=== PATIENT | male | born 1950 | race Caucasian/White ===

== ENCOUNTER 2018-01-20 12:58 | Emergency (ER) | payer MEDICARE ==
[~2018-01-20] VITALS: Ht 177.8 cm; Wt 65.9 kg
[2018-01-20 13:08] VITALS: Ht 177.8 cm; Wt 65.9 kg
[2018-01-20 13:30] LABS: BASOPHILS 0.1 % (0-2); EOSINOPHILS 0.4 % (0-7); HEMATOCRIT 41.4 % (42.0-54.0); HEMOGLOBIN 14.2 g/dL (13.5-17.5); IMMATURE GRANULOCYTES 0.1 % (0-5); LYMPHOCYTES 28.9 % (15-50); MCHC 34.3 g/dL (31.0-37.0); MCV 84.7 fL (80.0-100.0); MEAN PLATELET VOLUME 8.9 fL (7.4-10.4); MONOCYTES 4.1 % (2-11); NEUTROPHILS 66.4 % (40-80); PLATELET COUNT 248 10x3/uL (130-400); RBC 4.89 10x6/uL (4.20-6.10); RDW 13.1 % (11.5-14.5); WBC 8.9 10x3/uL (4.8-10.8)
[2018-01-20 13:31] LABS: APPEARANCE HAZY (CLEAR); COLOR DK YELLOW (YELLOW); GLUCOSE NEGATIVE (NEGATIVE); KETONE NEGATIVE (NEGATIVE); NITRITE NEGATIVE (NEGATIVE); PROTEIN NEGATIVE (NEGATIVE); UROBILINOGEN NORMAL (NORMAL)
[2018-01-20 13:32] LABS: BACTERIA FEW /hpf (NONE SEEN); BILIRUBIN 2+ (NEGATIVE); EPITHELIAL CELLS 0-5 /hpf (0-5); MUCUS <1+ /lpf (NONE SEEN); RED CELLS - URINE 0-5 /hpf (0-5); WHITE CELLS - URINE 0-5 /hpf (0-5)
[2018-01-20 13:43] LABS: ALKALINE PHOSPHATASE 157 U/L (46-116); ALT (SGPT) 209 U/L (10-68); AMYLASE - SERUM 54 U/L (25-115); BILIRUBIN - TOTAL 1.39 mg/dL (0.2-1.3); CALC OSMOLALITY 274 mosm/kg (275-300); CALCIUM 8.3 mg/dL (8.5-10.1); CARBON DIOXIDE 28.4 mmol/L (21.0-32.0); CHLORIDE - SERUM 100 mmol/L (98-107); CREATININE - SERUM 0.9 mg/dL (0.6-1.3); GLUCOSE 141 mg/dL (74-106); LIPASE 396 U/L (73-393); POTASSIUM - SERUM 3.4 mmol/L (3.5-5.1); PROTEIN - SERUM 7.7 g/dL (6.4-8.2); SODIUM 136 mmol/L (136-145); UREA NITROGEN 14 mg/dL (7-18); eGFR NON AFRICAN AMERICAN 90 mL/min (90-120)
[2018-01-20 17:27] VITALS: BP 149/91
[2018-02-02 11:39] VITALS: Ht 177.8 cm; Wt 65.9 kg
== END 2018-01-20 17:28 | disposition home or self-care (01) ==
LOC: D.ER 12:58
PROVIDERS: Family Medicine
DX: R10.9 Unspecified abdominal pain (principal); F17.200 Nicotine dependence, unspecified, uncomplicated

== ENCOUNTER 2018-02-02 10:07 | Day surgery (SDC) | payer MEDICARE ==
[~2018-02-02] VITALS: Ht 177.8 cm; Wt 65.8 kg
--- NOTE | ~2018-02-02 | OP ---
PATIENT NAME: MARY ANN GALAVIZ MEDICAL RECORD: [id number] :54 LOCATION:D.OPS ADMISSION DATE: SURGEON: MAINOR SOLIZ MD DATE OF OPERATION: 02/02/2018 PREOPERATIVE DIAGNOSES: 1. Acute cholecystitis. 2. Abnormal elevated LFTs. 3. Recent pancreatitis. 4. Right inguinal hernia. 5. Tobacco dependence syndrome. 6. Arthritis. POSTOPERATIVE DIAGNOSES: 1. Acute cholecystitis. 2. Abnormal elevated LFTs. 3. Recent pancreatitis. 4. Right inguinal hernia. 5. Tobacco dependence syndrome. 6. Arthritis. PROCEDURES: 1. Laparoscopic cholecystectomy. 2. Intraoperative cholangiogram. 3. Fluoroscopic interpretation. 4. Austin-Cut liver biopsy. SURGEON: Mainor Soliz MD REPORT OF PROCEDURE: The patient's abdomen was prepped and draped in sterile fashion. A cutdown was made on the superior aspect of the umbilicus. The 0 Vicryls were placed in the fascia bilaterally and the fascia was incised with a 15-blade. I then bluntly entered the peritoneal cavity and placed a 12-mm Candace port. Under direct visualization, a 5-mm trocar was placed in the epigastrium and 2 more 5-mm trocars were placed in the right subcostal region. The gallbladder was grasped and elevated. The gallbladder was noted to be chronically inflamed with maybe some mild acute inflammation. The roldan of the gallbladder were thick and there were stones that were palpable. The cystic artery and cystic duct were dissected free and these were inspected to assure there is no sign of any injury to any other structures. The cystic artery was clipped proximally and distally and ligated in standard fashion. The cystic duct was then clipped proximally and an opening was made in it with Metzenbaum scissors. A Cook cholangiocath was brought in through the abdominal wall and placed in the cystic duct. An intraoperative cholangiogram was performed under fluoroscopic guidance. At the conclusion of this, there was good flow through the sphincter of Oddi into the duodenum and there was good backfilling of the contrast into the common hepatic and common bile ducts open to the liver. There was one area where there was a questionable filling defect in the left hepatic duct, but we were unable to determine if this was a bubble or stone. Irregardless, it was very small and should be able to pass without complication. At this point, the Cook cholangiocath was removed. The cystic duct was clipped 3 times proximally and ligated in standard fashion. The gallbladder was taken off the liver bed using electrocautery and placed into an Endo Catch bag. We then irrigated out the right upper quadrant and any bleeding from the liver bed was treated with electrocautery. We then performed liver biopsies of the right OPERATIVE REPORT [id number] GALAVIZ,MARY ANN lobe of the liver using a Austin-Cut biopsy device. Four cores of tissue were taken from the liver and sent off for permanent specimen. Any bleeding from these sites was then treated with electrocautery. We irrigated out the abdomen one last time and assured there was no sign of any bleeding. At this point, the ports and insufflation were then removed and the gallbladder was taken out through the umbilicus. The umbilical fascia was closed with interrupted 0 Vicryls times 3. The wounds were then irrigated out with normal saline, infused with 10 mL of 0.25% Marcaine with epinephrine. The skin incisions were all closed with subcutaneous 5-0 Monocryl and dressed appropriately. COMPLICATIONS: None. CONDITION: Stable. ANESTHESIA: General endotracheal and local. BLOOD LOSS: Minimal. 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
[2018-02-02 10:52] LABS: HEMATOCRIT 43.2 % (42.0-54.0); HEMOGLOBIN 14.7 g/dL (13.5-17.5); MCH 29.3 pg (26.0-34.0); MCV 86.1 fL (80.0-100.0); MEAN PLATELET VOLUME 8.5 fL (7.4-10.4); RBC 5.02 10x6/uL (4.20-6.10); RDW 13.5 % (11.5-14.5); WBC 13.2 10x3/uL (4.8-10.8)
[2018-02-02] MEDS ORDERED: ACETAMINOPHEN500 M1 PO (11:28)
[2018-02-02 11:39] VITALS: BP 143/87; Ht 177.8 cm; Wt 65.8 kg
[2018-02-02] MEDS ORDERED: HYDROCODONE-APA1 TAB PO (14:54)
== END 2018-02-02 20:40 | disposition home or self-care (01) ==
LOC: D.OPS 10:07 → D.PAN 11:45 → D.OPS 12:30
PROVIDERS: Anesthesiology
DX: K80.12 Calculus of gallbladder with acute and chronic cholecystitis without obstruction (principal); R94.5 Abnormal results of liver function studies; K40.90 Unilateral inguinal hernia, without obstruction or gangrene, not specified as recurrent; F17.200 Nicotine dependence, unspecified, uncomplicated; M19.90 Unspecified osteoarthritis, unspecified site; Z01.812 Encounter for preprocedural laboratory examination